=== PATIENT | male | born 1990 ===

== ENCOUNTER 2023-12-01 15:06 | Emergency (ER) | payer MEDICAID ==
[~2023-12-01] VITALS: Ht 175.3 cm; Wt 72.7 kg
[2023-12-01] MEDS ORDERED: RISP1TAB48 PO (15:09)
[2023-12-01 15:10] VITALS: TEMP 98.5
[2023-12-01] MEDS ORDERED: RISP3TAB63 PO (16:43)
[2023-12-01 16:55] VITALS: BP 124/67; PULSE 77; RESP 18
== END 2023-12-01 17:39 | disposition home or self-care (01) ==
LOC: EMS 15:10
DX: F41.9 Anxiety disorder, unspecified (principal); F17.210 Nicotine dependence, cigarettes, uncomplicated; Z76.0 Encounter for issue of repeat prescription
CPT/HCPCS: 99281; Z7502